=== PATIENT | male | born 1985 | race African-American/Black ===

== ENCOUNTER 2021-05-12 17:43 | Emergency (ER) | payer SELFPAY ==
[2021-05-12 17:45] VITALS: BP 168/61; PULSE 81; RESP 20; TEMP 36.4; O2SAT 100
--- NOTE | 2021-05-12 18:02 | PC.NURSE ---
pt up to desk to inform this RN he is going to try another hospital . pt amb out of ed with steady gait and in no acute distress.
== END 2021-05-12 18:02 | disposition left against medical advice (07) ==
DX: S01.81XA Laceration without foreign body of other part of head, initial encounter (principal)
CPT/HCPCS: 99199